=== PATIENT | female | born 1985 | race African-American/Black ===

== ENCOUNTER 2016-10-23 16:05 | Emergency (ER) | payer SELFPAY ==
[~2016-10-23] VITALS: Ht 152.4 cm; Wt 72.0 kg
[~2016-10-23 16:05] MED LIST: VENTAER INH
[2016-10-23 16:07] VITALS: BP 118/74; PULSE 82; RESP 16; TEMP 98.1; O2SAT 100
--- NOTE | 2016-10-23 16:23 | PD ---
HPI . left foot pain and swelling x 1 day Chief Complaint: Edema Time Seen by Provider: 16:22 Travel History International Travel<30 days: No Contact w/Intl Traveler<30days: No Traveled to known affect area: No History of Present Illness HPI 31-year-old female with history of asthma here with complaints of left foot pain and swelling today. Patient says she was at work standing on her feet and she developed some foot pain and some swelling. She decided to come to the emergency room for evaluation as she does not have a primary care provider. She denies any cp or sob. PFSH Past Medical History Asthma: Yes High Cholesterol: Yes Diminished Hearing: No Respiratory: Yes ?: Not LMP: 10/18/16 Social History Alcohol Use: Yes (WINE NIGHTLY) Tobacco Use: Yes (1-2 CIGARS PER DAY) Substance Use: No Allergies-Medications (Allergen,Severity, Reaction): Coded Allergies: Iodine (Verified Allergy, Unknown, 04/23/16) Reported Meds & Prescriptions Reported Meds & Active Scripts Active Reported Ventolin Hfa 18 GM Inh (Albuterol Sulfate) 90 Mcg/Act Aer 2 Puff INH Q4-6H PRN Review of Systems General / Constitutional: No: Fever Eyes: No: Visual changes HENT: No: Headaches Cardiovascular: No: Chest Pain or Discomfort Respiratory: No: Shortness of Breath Gastrointestinal: No: Abdominal Pain Genitourinary: No: Dysuria Musculoskeletal: Positive: Pain (left foot pain) Skin: No Rash Neurologic: No: Weakness Psychiatric: No: Depression Endocrine: No: Polydipsia Hematologic/Lymphatic: No: Easy Bruising Physical Exam Narrative GENERAL: AAO x 3, no acute distress, Well-nourished, well-developed patient. SKIN: Warm and dry. No visible rashes or bruising. no edema of the feet, pedal pulses normal. HEAD: Normocephalic and atraumatic. EYES: No scleral icterus. No injection or drainage. EOM intact, PERRLA ENT: No nasal drainage noted. Mucous membranes pink. Airway patent. NECK: Supple, trachea midline. No JVD. CARDIOVASCULAR: Regular rate and rhythm without murmurs, gallops, or rubs. RESPIRATORY: Breath sounds equal bilaterally. No accessory muscle use. No rhonchi or rales. GASTROINTESTINAL: Abdomen soft, non-tender, nondistended. EXTREMITIES: No cyanosis or edema. Full ROM left foot. no edema, no point tenderness. strength normal. dorsi and plantar flexion normal BACK: Nontender without obvious deformity. No CVA tenderness. PSYCH: AAO x 3, normal affect. Data Data Last Documented VS Vital Signs Date Time Temp Pulse Resp B/P Pulse Ox O2 Delivery O2 Flow Rate FiO2 10/23/16 16:07 98.1 82 16 118/74 100 MDM Medical Decision Making Medical Screen Exam Complete: Yes Emergency Medical Condition: Yes Medical Record Reviewed: Yes Differential Diagnosis OA, less likely fracture, less likely sprain, Narrative Course 31-year-old female with history of asthma here with complaints of left foot pain and swelling today. Patient says she was at work standing on her feet and she developed some foot pain and some swelling. She decided to come to the emergency room for evaluation as she does not have a primary care provider. She denies any cp or sob. Patient seen and examined. She does not have any abnormal findings on physical exam. She does not have any edema of her lower extremity. She has full range of motion of the joint. I explained to her with prolonged standing that sometimes people can develop some edema. I recommend compression stockings for prolonged periods of work. I explain to her that this moment there is no need for medication or any intervention. I explained to her that there is no evidence of fracture and imaging is not indicated. Patient verbalized understanding of instructions, questions were answered, and thanked me for their care. I advised them if their condition worsens, please return to the nearest emergency room for further care. Diagnosis Primary Impression: Foot pain, left Patient Instructions: General Instructions Departure Forms: Tests/Procedures, Work Release Enter return to work date: October 24, 2016 Additional Instructions: Please return to emergency department if your symptoms return or worsen. Follow up with your primary care provider. Disposition: 01 DISCHARGE HOME Condition: Stable Enriqueta Rosas October 23, 2016 16:22
[2016-10-23] MEDS ORDERED: IBUPROFEN 800 MG TAB ONE (17:11)
[2016-10-23] MEDS ORDERED: IBUPROFEN 800 MG TAB PO ONE (17:15)
== END 2016-10-23 17:16 | disposition home or self-care (01) ==
LOC: NEPK 16:05
DX: M79.672 Pain in left foot (principal)
CPT/HCPCS: 99283

== ENCOUNTER 2017-06-13 10:37 | Emergency (ER) | payer SELFPAY ==
[2017-06-13 10:38] VITALS: BP 135/67; PULSE 88; RESP 16; TEMP 97.7; O2SAT 98
[2017-06-13] MEDS ORDERED: ONDANSETRON ODT 4 MG TAB PO ONE (11:15)
[2017-06-13] MEDS ORDERED: RESP: ALBUTEROL 2.5 MG/IPRATROPIUM 0.5 MG NEB (SCH) NEB ONE ×2 (11:15→12:00)
[2017-06-13] MEDS ORDERED: VENTAER INH (11:16)
[2017-06-13] MEDS ORDERED: BENZ100 PO (11:16)
--- NOTE | 2017-06-13 11:20 | PD ---
HPI Chief Complaint: Cold / Flu Symptoms Time Seen by Provider: 11:09 Travel History International Travel<30 days: No Contact w/Intl Traveler<30days: No Traveled to known affect area: No History of Present Illness HPI 28-year-old female presents to emergency department complaining of sneezing, nonproductive cough, clear rhinorrhea, sore throat and congestion for 3 days. Patient states that she has been using [id number] medications without relief. States that she feels feverish. Denies chills. Since this morning that she felt nauseous and weak and decided to come to the emergency department today. Patient states she has a history of asthma but ran out of her inhaler. She's been unable to follow with a primary care physician. Says she has been trying to drink plenty of fluids and eating normally however she just does not feel good. PFSH Past Medical History Asthma: Yes High Cholesterol: Yes Diminished Hearing: No Respiratory: Yes ?: Not LMP: 06/05/17 Past Surgical History Surgical History: No Previous Surgery Social History Alcohol Use: Yes (WINE NIGHTLY) Tobacco Use: Yes (1-2 CIGARS PER DAY) Substance Use: No Allergies-Medications (Allergen,Severity, Reaction): Coded Allergies: iodine (Unverified Allergy, Unknown, 06/13/17) potassium iodide (Unverified Allergy, Unknown, 06/13/17) povidone-iodine (Unverified Allergy, Unknown, 06/13/17) sodium iodide (Unverified Allergy, Unknown, 06/13/17) sodium iodide (Unverified Allergy, Unknown, 06/13/17) Reported Meds & Prescriptions Reported Meds & Active Scripts Active Tessalon Perles (Benzonatate) 100 Mg Cap 100 Mg PO TID PRN 5 Days Ventolin Hfa 18 GM Inh (Albuterol Sulfate) 90 Mcg/Act Aer 2 Puff INH Q4-6H PRN Reported Ventolin Hfa 18 GM Inh (Albuterol Sulfate) 90 Mcg/Act Aer 2 Puff INH Q4-6H PRN Review of Systems Except as stated in HPI: all other systems reviewed are Neg Physical Exam Narrative GENERAL: Well-developed well-nourished in mild distress SKIN: Focused skin assessment warm/dry. HEAD: Atraumatic. Normocephalic. EYES: Pupils equal and round. No scleral icterus. No injection or drainage. ENT: No nasal bleeding or discharge. Mucous membranes pink and moist. NECK: Trachea midline. No JVD. No lymphadenopathy THROAT: No pharyngeal injection, exudates, or tonsillar hypertrophy. Airway is patent. Copious mucous posterior pharynx CARDIOVASCULAR: Regular rate and rhythm. No murmur appreciated. RESPIRATORY: No accessory muscle use. Clear to auscultation. Breath sounds equal bilaterally. No wheezing, rales or rhonchi GASTROINTESTINAL: Abdomen soft nondistended. Mildly tender MUSCULOSKELETAL: No obvious deformities. No clubbing. No cyanosis. No edema. NEUROLOGICAL: Awake and alert. No obvious cranial nerve deficits. Motor grossly within normal limits. Normal speech. PSYCHIATRIC: Appropriate mood and affect; insight and judgment normal. Data Data Last Documented VS Vital Signs Date Time Temp Pulse Resp B/P (MAP) Pulse Ox O2 Delivery O2 Flow Rate FiO2 06/13/17 10:38 97.7 88 16 135/67 (89) 98 Orders Orders Albuterol-Ipratropium Neb (Duoneb Neb) (06/13/17 11:15) Ondansetron Odt (Zofran Odt) (06/13/17 11:15) Albuterol-Ipratropium Neb (Duoneb Neb) (06/13/17 12:00) MDM Medical Decision Making Medical Screen Exam Complete: Yes Emergency Medical Condition: Yes Differential Diagnosis Influenza, bronchitis, asthma, upper respiratory infection Narrative Course 31-year-old female presents to emergency department complaining of sneezing, nonproductive cough, clear rhinorrhea, sore throat and congestion for 3 days. Patient states that she has been using [id number] medications without relief. States that she feels feverish. Denies chills. Since this morning that she felt nauseous and weak and decided to come to the emergency department today. Patient states she has a history of asthma but ran out of her inhaler. She's been unable to follow with a primary care physician. Says she has been trying to drink plenty of fluids and eating normally however she just does not feel good. Vital signs stable Physical exam findings consistent with an upper respiratory infection versus influenza versus asthma Zofran and DuoNeb administered in the emergency department today. Patient says she feels a little better. Patient is out of her albuterol inhalers. Albuterol and Tessalon Perles prescribed. Patient to follow up with primary care physician within 2-3 days. Return to emergency department for worsening or persistent symptoms Diagnosis Primary Impression: Viral syndrome Referrals: [facility] Patient Instructions: Acute Bronchitis (ED), Asthma (ED), General Instructions Additional Instructions: Follow up with your primary care physician within 2-3 days. If your symptoms persist or worsen, return to the emergency department. Scripts Benzonatate (Tessalon Perles) 100 Mg Cap 100 MG PO TID Y for COUGH for 5 Days, CAP 0 Refills Prov: Thiago Olvera MD 06/13/17 Albuterol 18 GM Inh (Ventolin Hfa 18 GM Inh) 90 Mcg/Act Aer 2 PUFF INH Q4-6H Y for SHORTNESS OF BREATH, #1 INHALER 0 Refills Prov: Thiago Olvera MD 06/13/17 Disposition: 01 DISCHARGE HOME Condition: Stable Keeley Lama Jun 13, 2017 11:20
== END 2017-06-13 13:00 | disposition home or self-care (01) ==
LOC: NEPD 10:37
DX: B34.9 Viral infection, unspecified (principal); J45.909 Unspecified asthma, uncomplicated; E78.00 Pure hypercholesterolemia, unspecified; F17.290 Nicotine dependence, other tobacco product, uncomplicated
CPT/HCPCS: 94640; 94664; 99284

== ENCOUNTER 2017-11-28 14:36 | Emergency (ER) | payer SELFPAY ==
[~2017-11-28] VITALS: Ht 152.4 cm; Wt 73.0 kg
[~2017-11-28 14:36] MED LIST changes: +BENZ100 PO
[2017-11-28 14:39] VITALS: BP 122/70; PULSE 75; RESP 19; TEMP 98.4; O2SAT 99
--- NOTE | 2017-11-28 15:20 | PD ---
HPI Chief Complaint: Foreign Body Time Seen by Provider: 15:10 Travel History International Travel<30 days: No Contact w/Intl Traveler<30days: No Traveled to known affect area: No History of Present Illness HPI 32-year-old female complains of possible foreign body in the left ear canal. Patient states that a Q-tip possibly stuck inside the left ear canal for the past 2 weeks. Patient states that she tried to flush left ear canal with water and peroxide without success. Patient denies any pain. Patient states that she has stuffiness from the left ear. PFSH Past Medical History Asthma: Yes High Cholesterol: Yes Diminished Hearing: No Respiratory: Yes ?: Not LMP: 11/25/17 Social History Alcohol Use: Yes (WINE NIGHTLY) Tobacco Use: Yes (1-2 CIGARS PER DAY) Substance Use: No Allergies-Medications (Allergen,Severity, Reaction): Coded Allergies: iodine (Unverified Allergy, Unknown, 11/28/17) potassium iodide (Unverified Allergy, Unknown, 11/28/17) povidone-iodine (Unverified Allergy, Unknown, 11/28/17) sodium iodide (Unverified Allergy, Unknown, 11/28/17) sodium iodide (Unverified Allergy, Unknown, 11/28/17) Reported Meds & Prescriptions Reported Meds & Active Scripts Active Tessalon Perles (Benzonatate) 100 Mg Cap 100 Mg PO TID PRN 5 Days Ventolin Hfa 18 GM Inh (Albuterol Sulfate) 90 Mcg/Act Aer 2 Puff INH Q4-6H PRN Reported Ventolin Hfa 18 GM Inh (Albuterol Sulfate) 90 Mcg/Act Aer 2 Puff INH Q4-6H PRN Review of Systems General / Constitutional: No: Fever Eyes: No: Visual changes HENT: No: Headaches Cardiovascular: No: Chest Pain or Discomfort Respiratory: No: Shortness of Breath Gastrointestinal: No: Abdominal Pain Genitourinary: No: Dysuria Musculoskeletal: No: Pain Skin: No Rash Neurologic: No: Weakness Psychiatric: No: Depression Endocrine: No: Polydipsia Hematologic/Lymphatic: No: Easy Bruising Physical Exam Narrative GENERAL: Well-nourished, well-developed patient. SKIN: Focused skin assessment warm/dry. HEAD: Normocephalic. EYES: No scleral icterus. No injection or drainage. Left ear canals normal. Left TM normal. Mild effusion noted behind the left TM. Right TM is clear. Throat: Nonerythematous. NECK: Supple, trachea midline. No JVD or lymphadenopathy. CARDIOVASCULAR: Regular rate and rhythm without murmurs, gallops, or rubs. RESPIRATORY: Breath sounds equal bilaterally. No accessory muscle use. GASTROINTESTINAL: Abdomen soft, non-tender, nondistended. MUSCULOSKELETAL: No cyanosis, or edema. BACK: Nontender without obvious deformity. No CVA tenderness. Data Data Last Documented VS Vital Signs Date Time Temp Pulse Resp B/P (MAP) Pulse Ox O2 Delivery O2 Flow Rate FiO2 11/28/17 14:39 98.4 75 19 122/70 (87) 99 Orders Orders Ed Discharge Order (11/28/17 15:20) MDM Medical Decision Making Medical Screen Exam Complete: Yes Emergency Medical Condition: Yes Differential Diagnosis Differential diagnosis including foreign body, serous otitis media, eustachian tube dysfunction. Narrative Course 32-year-old female complains of possible a Q-tip in the left ear. Diagnosis Primary Impression: Eustachian tube dysfunction Qualified Codes: H69.82 - Other specified disorders of eustachian tube, left ear Patient Instructions: General Instructions Additional Instructions: Advised patient to follow with local physician. Return if ear pain, fever. Med/Other Pt SpecificInfo: No Meds Exist/No RX given Disposition: 01 DISCHARGE HOME Condition: Stable Daniel Peralta MD Nov 28, 2017 15:20
== END 2017-11-28 15:50 | disposition home or self-care (01) ==
LOC: NEPD 14:36
DX: H69.82 Other specified disorders of Eustachian tube, left ear (principal); E78.00 Pure hypercholesterolemia, unspecified; J45.909 Unspecified asthma, uncomplicated; Z72.0 Tobacco use
CPT/HCPCS: 99281